=== PATIENT | male | born 1940 | race Caucasian/White ===

== ENCOUNTER 2021-03-17 22:32 | Emergency (ER) | payer MEDICARE, OTHER, SELFPAY ==
--- NOTE | 2021-03-17 22:33 | CTR_ITS ---
PROCEDURE INFORMATION: Exam: CT Cervical Spine Without Contrast Exam date and time: 03/17/2021 11:22 PM Age: 80 years old Clinical indication: Injury or trauma; Blunt trauma; Injury details: Fall. Hit left side. Pain in head and neck TECHNIQUE: Imaging protocol: Computed tomography images of the cervical spine without contrast. Radiation optimization: All CT scans at this facility use at least one of these dose optimization techniques: automated exposure control; mA and/or kV adjustment per patient size (includes targeted exams where dose is matched to clinical indication); or iterative reconstruction. COMPARISON: No relevant prior studies available. RADIATION DOSE METRICS: Total DLP (mGy-cm): 523.37 FINDINGS: Vertebrae: Nondisplaced fracture to the base of the odontoid process, potentially acute. Multilevel degenerative disc space disease throughout the spine. C2-C3: No significant disc protrusion. No severe spinal canal stenosis. No significant neural foraminal narrowing. C3-C4: No significant disc protrusion. No severe spinal canal stenosis. No significant neural foraminal narrowing. C4-C5: No significant disc protrusion. No severe spinal canal stenosis. No significant neural foraminal narrowing. C5-C6: No significant disc protrusion. No severe spinal canal stenosis. No significant neural foraminal narrowing. C6-C7: No significant disc protrusion. No severe spinal canal stenosis. No significant neural foraminal narrowing. C7-T1: No significant disc protrusion. No severe spinal canal stenosis. No significant neural foraminal narrowing. Soft tissues: Unremarkable. Lungs: Lung apices are normal. CT/CT cervical spin wo con* [id number] IMPRESSION: 1. Nondisplaced fracture to the base of the odontoid process, potentially acute. 2. Multilevel degenerative disc space disease throughout the spine. THIS REPORT CONTAINS FINDINGS THAT MAY BE CRITICAL TO PATIENT CARE. The findings were verbally communicated via telephone conference with NATALYA JULES at 11:41 PM CDT on 03/17/2021. The findings were acknowledged and understood. Radiation Dose CTDIVOL = (mGy): DLP = 523.37 (mGy-cm)
--- NOTE | 2021-03-17 22:33 | CTR_ITS ---
PROCEDURE INFORMATION: Exam: CT Head Without Contrast Exam date and time: 03/17/2021 11:22 PM Age: 80 years old Clinical indication: Injury or trauma; Blunt trauma (contusions or hematomas); Injury details: Fall. Hit left side. Pain in head and neck TECHNIQUE: Imaging protocol: Computed tomography of the head without contrast. Radiation optimization: All CT scans at this facility use at least one of these dose optimization techniques: automated exposure control; mA and/or kV adjustment per patient size (includes targeted exams where dose is matched to clinical indication); or iterative reconstruction. COMPARISON: No relevant prior studies available. RADIATION DOSE METRICS: Total DLP (mGy-cm): 969.45 FINDINGS: Brain: Normal. No hemorrhage. Unremarkable white matter. No mass effect. Bilateral punctate benign basal ganglia calcifications. Moderate diffuse white matter disease likely reflecting chronic microvascular ischemic changes. Cerebral ventricles: No ventriculomegaly. Paranasal sinuses: Visualized sinuses are unremarkable. No fluid levels. Mastoid air cells: Visualized mastoid air cells are well aerated. Bones/joints: Unremarkable. No acute fracture. Soft tissues: Unremarkable. CT/CT head wo con* [id number] IMPRESSION: Negative for intracranial hemorrhage or mass effect. Radiation Dose CTDIVOL = (mGy): DLP = 969.45 (mGy-cm)
[2021-03-17 22:39] VITALS: BP 153/93; PULSE 78; RESP 16; TEMP 36.6; O2SAT 99; BMI 24.0
--- NOTE | 2021-03-17 22:45 | ED_ITS ---
HPI - Fall General: Chief Complaint: Fall Stated Complaint: fall- head and neck pain Time Seen by Provider: 03/17/21 22:35 Source: patient Mode of arrival: ambulatory Limitations: no limitations History of Present Illness: HPI Narrative: 80-year-old male states roughly 4 to 5 hours ago he was pumping gas and tripped over the gas line and fell. He states he hit the left side of his head on the pavement. He denies loss consciousness but states he has had increasing headache and neck pain since that incident. States his headache is currently a 7 out of 10. He states that he has felt tired as well. Has had no vomiting. He is not on any blood thinners. He denies any other injuries. He has been able to ambulate without any problems. Associated symptoms-after fall: Reports headache(s) and neck pain; Denies abdominal pain or chest pain Review of Systems Const: Denies: fever(s), chills, body aches or change in appetite Eyes: Denies: blurry vision or eye discomfort ENMT: Denies: throat pain or dental pain Card: Denies: chest pain Resp: Denies: dyspnea GI: Denies: abdominal pain, nausea, vomiting or diarrhea : Denies: dysuria Musc: Reports: neck pain; Denies: back pain Skin/Breast: Denies: rash Neuro: Reports: headache(s) Psych: Denies: depression Bin/Lymph: Denies: easy bruising All/Imm: Denies: urticaria Physical Exam Const: COMMON NORMALS: no acute distress, patient oriented x3 and healthy appearing HENMT: COMMON NORMALS: normocephalic HEAD & SCALP: normocephalic OTHER: tenderness over left parietal region Eye: COMMON NORMALS: Equal, round and reactive pupils present and EOMs intact bilaterally PUPIL: Yes Equal, round and reactive pupils present Neck/C-Spine: COMMON NORMALS: full ROM and supple Chest: COMMONS NORMALS: normal inspection of the chest and normal palpation of entire chest wall Resp: COMMON NORMALS: normal respiratory effort, No retractions, No use of accessory muscles and clear to auscultation bilaterally AUSCULTATION: clear to auscultation bilaterally Cardio: COMMON NORMALS: regular rate, regular rhythm and No murmurs present (Cardio) RATE: regular rate RHYTHM: regular rhythm GI: COMMON NORMALS: Normal to inspection, nondistended, normoactive bowel sounds present, Soft to palpation, non-tender and no masses PALPATION: Yes Soft to palpation Extremity: COMMON NORMALS: normal to inspection and full ROM Neuro: COMMON NORMALS: patient oriented x3, moves all extremities and no focal motor deficits Psych: COMMON NORMALS: mental status grossly normal, Normal thought process present and cooperative THOUGHT PROCESS: Normal thought process present Skin: COMMON NORMALS: no rashes or lesions noted and no wounds GENERAL SKIN EXAM: no rashes or lesions noted Course Vital Signs: Vital signs: Vital Signs Temperature 97.8 F 03/17/21 22:39 Pulse Rate 78 03/17/21 22:39 Respiratory Rate 16 03/17/21 22:39 Blood Pressure 153/93 03/17/21 22:39 Pulse Oximetry 99 03/17/21 22:39 MDM - Fall MDM Narrative: Medical decision making narrative: Patient presents here with a odontoid fracture after a fall. I spoke to Dr. Ureña who recommended [place] collar follow-up. Spoke to patient he does not live here patient lives in [place] he states he has a spine surgeon that he sees in [place] and will follow up with him. And will place him in [place] brace here in he is to follow-up with him as soon as possible. He has no neurologic findings. He has no numbness or weakness in his extremities. His head CT here is negative. Imaging Data^: CT Head: Radiologist's impression: [address] [address] [address] Scan Report Signed Patient: Tristin Eagle Unit #: [id number] : 1940 Acct#:[id number] Age/Sex: 80 / M ADM Date: 03/17/21 Loc: ER Room/Bed: Attending Dr: Ordering Provider/Ordering MD: Natalya Jules MD Date of Service: 03/17/21 Procedure(s): CT head wo con* [id number] Accession Number(s): [id number] Report Number: [id number] PROCEDURE INFORMATION: Exam: CT Head Without Contrast Exam date and time: 03/17/2021 11:22 PM Age: 80 years old Clinical indication: Injury or trauma; Blunt trauma (contusions or hematomas); Injury details: Fall. Hit left side. Pain in head and neck TECHNIQUE: Imaging protocol: Computed tomography of the head without contrast. Radiation optimization: All CT scans at this facility use at least one of these dose optimization techniques: automated exposure control; mA and/or kV adjustment per patient size (includes targeted exams where dose is matched to clinical indication); or iterative reconstruction. COMPARISON: No relevant prior studies available. RADIATION DOSE METRICS: Total DLP (mGy-cm): 969.45 FINDINGS: Brain: Normal. No hemorrhage. Unremarkable white matter. No mass effect. Bilateral punctate benign basal ganglia calcifications. Moderate diffuse white matter disease likely reflecting chronic microvascular ischemic changes. Cerebral ventricles: No ventriculomegaly. Paranasal sinuses: Visualized sinuses are unremarkable. No fluid levels. Mastoid air cells: Visualized mastoid air cells are well aerated. Bones/joints: Unremarkable. No acute fracture. Soft tissues: Unremarkable. CT/CT head wo con* [id number] IMPRESSION: Negative for intracranial hemorrhage or mass effect. Other CT: Radiologist's impression: Embedded [address] [address] [address] Scan Report Signed Patient: Tristin Eagle Unit #: [id number] : 1940 Age/Sex: 80 / M ADM Date: 03/17/21 Loc: ER Room/Bed: Attending Dr: Ordering Provider/Ordering MD: Natalya Jules MD Date of Service: 03/17/21 Procedure(s): CT cervical spin wo con* [id number] Accession Number(s): [id number] Report Number: [id number] PROCEDURE INFORMATION: Exam: CT Cervical Spine Without Contrast Exam date and time: 03/17/2021 11:22 PM Age: 80 years old Clinical indication: Injury or trauma; Blunt trauma; Injury details: Fall. Hit left side. Pain in head and neck TECHNIQUE: Imaging protocol: Computed tomography images of the cervical spine without contrast. Radiation optimization: All CT scans at this facility use at least one of these dose optimization techniques: automated exposure control; mA and/or kV adjustment per patient size (includes targeted exams where dose is matched to clinical indication); or iterative reconstruction. COMPARISON: No relevant prior studies available. RADIATION DOSE METRICS: Total DLP (mGy-cm): 523.37 FINDINGS: Vertebrae: Nondisplaced fracture to the base of the odontoid process, potentially acute. Multilevel degenerative disc space disease throughout the spine. C2-C3: No significant disc protrusion. No severe spinal canal stenosis. No significant neural foraminal narrowing. C3-C4: No significant disc protrusion. No severe spinal canal stenosis. No significant neural foraminal narrowing. C4-C5: No significant disc protrusion. No severe spinal canal stenosis. No significant neural foraminal narrowing. C5-C6: No significant disc protrusion. No severe spinal canal stenosis. No significant neural foraminal narrowing. C6-C7: No significant disc protrusion. No severe spinal canal stenosis. No significant neural foraminal narrowing. C7-T1: No significant disc protrusion. No severe spinal canal stenosis. No significant neural foraminal narrowing. Soft tissues: Unremarkable. Lungs: Lung apices are normal. CT/CT cervical spin wo con* [id number] IMPRESSION: 1. Nondisplaced fracture to the base of the odontoid process, potentially acute. 2. Multilevel degenerative disc space disease throughout the spine. THIS REPORT CONTAINS FINDINGS THAT MAY BE CRITICAL TO PATIENT CARE. The findings were verbally communicated via telephone conference with NATALYA JULES at 11:41 PM CDT on 03/17/2021. The findings were acknowledged and understood. Discharge Plan Discharge Patient Disposition: Home Clinical Impression: Odontoid fracture Qualifiers: Encounter type: initial encounter Fracture type: closed Qualified Code(s): S12.100A - Unspecified displaced fracture of second cervical vertebra, initial encounter for closed fracture Condition: Stable Prescriptions: New hydrocodone-acetaminophen 5-325 mg tablet 1 tab PO Q6H PRN (Reason: pain) Qty: 14 RF: 0 Robaxin-750 750 mg tablet 750 mg PO Q6H Qty: 30 RF: 0 No Action multivitamin Tablet 1 tab PO DAILY RF: 0 aspirin 81 mg Tablet 81 mg PO DAILY RF: 0 Discharge Orders: Discharge ED (Routine); Ordered 03/17/21 Ordered By: Natalya Jlues Discharge Diet: Advance as tolerated Discharge Activity: Resume usual activity Patient Instructions: Cervical Fracture (ED), Opioid Safety Coding Level of Care Code ED Construction Superintendent for g Fwd Exam Comprehensive
[2021-03-17] MEDS: HYDROcodone-acetaminophen 5-325 mg Tablet 1 TAB PO (22:47)
[2021-03-18 00:46] VITALS: BP 100/70; PULSE 73; RESP 17; O2SAT 95
--- NOTE | 2021-03-18 01:18 | PC.NURSE ---
[place] cervical collar placed on patient.
== END 2021-03-18 00:46 | disposition home or self-care (01) ==
PROVIDERS: Emergency Provider Emergency Medicine
DX: S12.100A Unspecified displaced fracture of second cervical vertebra, initial encounter for closed fracture (principal); Z79.82 Long term (current) use of aspirin; W01.0XXA Fall on same level from slipping, tripping and stumbling without subsequent striking against object, initial encounter; Y92.524 Gas station as the place of occurrence of the external cause
CPT/HCPCS: 70450; 72125; 99283